=== PATIENT | female | born 1985 | race Caucasian/White ===

== ENCOUNTER 2022-07-23 22:02 | Emergency (ER) | payer SELFPAY ==
[~2022-07-23] VITALS: Ht 162.6 cm; Wt 49.1 kg
[2022-07-23 22:15] VITALS: BP 137/84
[2022-07-23] MEDS ORDERED: ACETAMINOPHEN 325MG TABLET PO STA (23:08)
[2022-07-23] MEDS ORDERED: ONDANSETRON HCL 4MG TABLET PO ONE (23:15)
[2022-07-23 23:53] LABS: CLARITY URINE CLEAR (CLEAR); COLOR URINE YELLOW (YELLOW); KETONES URINE 1+ (NEGATIVE); LEUKOCYTE ESTERASE URINE NEGATIVE (NEGATIVE); NITRITE URINE NEGATIVE (NEGATIVE); OCCULT BLOOD URINE 2+ (NEGATIVE); PH URINE 5.5 (4.5-8.0); PROTEIN URINE NEGATIVE (NEGATIVE); SPECIFIC GRAVITY URINE 1.009 (1.005-1.030); UROBILINOGEN URINE 0.2 E.U./dL (0.2-1.0)
[2022-07-24 00:06] LABS: CHLORIDE 103 mEq/L (98-107)
[2022-07-24 00:10] LABS: HCG SCREEN NEGATIVE
[2022-07-24 00:11] LABS: BASOPHILS % 0.3 % (0.0-2.0); EOSINOPHILS % 0.2 % (0.0-5.0); HEMATOCRIT. 41.5 % (36.0-48.0); LYMPHOCYTES % 37.3 % (20.0-50.0); MEAN CORPUSCULAR HEMOGLOBIN 31.5 pg (28.0-32.0); MEAN CORPUSCULAR VOLUME 93.6 fL (81.0-99.0); MEAN PLATELET VOLUME 8.7 fl (7.4-10.4); MONOCYTES % 6.3 % (2.0-8.0); NEUTROPHILS % 55.9 % (40.0-76.0); PLATELET 338 x1000/uL (130-400); RED BLOOD CELL COUNT 4.43 mill/uL (4.2-5.4); RED CELL DISTRIBUTION WIDTH 12.4 % (11.6-14.6)
== END 2022-07-24 01:56 | disposition left against medical advice (07) ==
LOC: ER 22:02
DX: R10.30 Lower abdominal pain, unspecified (principal); R53.1 Weakness; R53.83 Other fatigue; R19.7 Diarrhea, unspecified; D64.9 Anemia, unspecified
CPT/HCPCS: 36415; 80053; 81003; 82962; 84703; 85025; 99283